=== PATIENT | male | born 1975 | race African-American/Black ===

== ENCOUNTER 2019-08-21 13:32 | Inpatient (IN) | payer OTHER ==
[~2019-08-21] VITALS: Ht 162.6 cm; Wt 115.7 kg
[2019-08-21] MEDS ORDERED: LORAZEPAM 2MG/ML CPJ IM ONE (15:45)
[2019-08-21] MEDS ORDERED: HALOPERIDOL LACTATE 5MG/ML VIAL IM ONE (17:15)
[2019-08-21 18:38] LABS: BASOPHILS % 0.8 % (0.0-2.0); EOSINOPHILS % 1.2 % (0.0-5.0); HEMATOCRIT. 46.8 % (42.0-52.0); HEMOGLOBIN. 15.5 g/dL (14.0-18.0); LYMPHOCYTES % 24.9 % (20.0-50.0); MEAN CORPUSCULAR HEMOGLOBIN 27.9 pg (28.0-32.0); MEAN CORPUSCULAR VOLUME 84.6 fL (80.0-94.0); MEAN PLATELET VOLUME 7.9 fl (7.4-10.4); MONOCYTES % 12.8 % (2.0-8.0); NEUTROPHILS % 60.3 % (40.0-76.0); PLATELET 291 x1000/uL (130-400); RED BLOOD CELL COUNT 5.53 mill/uL (4.7-6.1); RED CELL DISTRIBUTION WIDTH 14.3 % (11.6-14.6)
[2019-08-21 18:43] LABS: CHLORIDE 105 mEq/L (98-107)
[2019-08-21 18:48] LABS: ETHANOL BLOOD < 10 mg/dL
[2019-08-21] MEDS ORDERED: CALCIUM CHLORIDE 1,000 MG in DEXT 5% WATER 90 ML IV ONE (19:15)
[2019-08-21] MEDS ORDERED: CALCIUM GLUCONATE 100MG/ML 10ML VIAL IV NR (21:00)
[2019-08-21] MEDS ORDERED: CARB400T8 PO (21:51)
[2019-08-21] MEDS ORDERED: PHEN100C12 PO (21:51)
[2019-08-21] MEDS ORDERED: HALOPERIDOL LACTATE 5MG/ML VIAL IM NR (23:01)
[2019-08-21 23:40] LABS: CARBAMAZEPINE 10.9 ug/mL (4-12)
[2019-08-21] MEDS ORDERED: ACETAMINOPHEN 325MG TABLET PO PRN (23:45)
[2019-08-21] MEDS ORDERED: HYDROCODONE/ACETAMINOPHEN 5/325MG TABLET PO PRN (23:45)
[2019-08-21] MEDS ORDERED: IPRATROPIUM/ALBUTEROL 0.5-3(2.5)MG/3ML NEB NEB PRN (23:45)
[2019-08-21] MEDS ORDERED: ONDANSETRON HCL 4MG/2ML INJ IV PRN (23:45)
[2019-08-21] MEDS ORDERED: DOCUSATE SODIUM 100MG CAPSULE PO PRN (23:45)
[2019-08-21] MEDS ORDERED: CLONIDINE 0.1MG TABLET PO PRN (23:45)
[2019-08-22] MEDS ORDERED: LORAZEPAM 2MG/ML CPJ IM PRN (07:45)
[2019-08-22 20:00] VITALS: BP 130/65
[2019-08-22] MEDS: PHENYTOIN SODIUM EXTENDED 100MG CAPSULE PO SCH (21:43)
[2019-08-23] VITALS (7 sets, daily range): BP systolic 120–153; BP diastolic 59–100
[2019-08-23 02:52] LABS: BASOPHILS % 0.8 % (0.0-2.0); EOSINOPHILS % 0.7 % (0.0-5.0); HEMOGLOBIN. 16.1 g/dL (14.0-18.0); MEAN CORPUSCULAR HEMOGLOBIN 28.1 pg (28.0-32.0); MEAN PLATELET VOLUME 7.7 fl (7.4-10.4); MONOCYTES % 12.6 % (2.0-8.0); NEUTROPHILS % 68.9 % (40.0-76.0); PLATELET 320 x1000/uL (130-400); RED BLOOD CELL COUNT 5.72 mill/uL (4.7-6.1); RED CELL DISTRIBUTION WIDTH 14.4 % (11.6-14.6)
[2019-08-23 02:59] LABS: CHLORIDE 105 mEq/L (98-107)
[2019-08-23 03:06] LABS: LDL CHOLESTEROL 90 mg/dL (5-100)
[2019-08-23 03:07] LABS: CREATINE KINASE 314 IU/L (39-308); HDL CHOLESTEROL 75 mg/dL (40-59)
[2019-08-23 03:10] LABS: CREATINE KINASE MB FRACTION 3.3 ng/mL (0.5-3.6)
[2019-08-23] MEDS: PHENYTOIN SODIUM EXTENDED 100MG CAPSULE PO SCH ×2 (08:47→17:09)
[2019-08-23] MEDS ORDERED: LORAZEPAM 2MG/ML CPJ IM PRN (12:00)
== END 2019-08-23 21:10 | disposition home or self-care (01) | DRG 57 ==
LOC: ER 14:05 → ENRESERV 08-22 17:56 → 7WST 08-22 20:58
PROVIDERS: ADMIT Internal Medicine; ATTEND Internal Medicine
DX: G91.9 Hydrocephalus, unspecified (principal); E83.51 Hypocalcemia; G40.909 Epilepsy, unspecified, not intractable, without status epilepticus; Z87.820 Personal history of traumatic brain injury; Z98.2 Presence of cerebrospinal fluid drainage device
CPT/HCPCS: 36415; 70360; 71045; 74018; 80048; 80053; 80061; 80156; 80185; 80307; 80320; 80329; 82550; 82553; 82962; 83880; 84443; 84484; 85025; 93005; 93970; 96365; 96372; 96375; 99285; A6261; C1893; J0610; J1630; J2060; J3490; J7060; G0480